=== PATIENT | female | born 1995 | race Hispanic/Latino ===

== ENCOUNTER 2022-10-11 20:53 | Emergency (ER) | payer MEDICARE ==
[~2022-10-11] VITALS: Ht 144.8 cm; Wt 101.2 kg
[2022-10-11 21:19] VITALS: BP 112/70
[2022-10-11] MEDS ORDERED: KETOROLAC 30MG VIAL (30MG/ML) IM ONE (23:00)
[2022-10-11] MEDS ORDERED: ACETAMINOPHEN WITH CODEINE 1 TAB TAB PO ONE (23:00)
[2022-10-11] MEDS ORDERED: ACET-2079 PO (23:08)
[2022-10-11] MEDS ORDERED: IBUP-2070 PO (23:08)
== END 2022-10-11 23:31 | disposition home or self-care (01) ==
LOC: EDH 20:53
DX: K02.9 Dental caries, unspecified (principal); K08.89 Other specified disorders of teeth and supporting structures; Z98.890 Other specified postprocedural states
CPT/HCPCS: 96372; 99283; J1885

== ENCOUNTER 2022-11-25 18:32 | Emergency (ER) | payer MEDICARE ==
[~2022-11-25] VITALS: Ht 144.8 cm; Wt 100.7 kg
[~2022-11-25 18:32] MED LIST: ACET-2079 PO; IBUP-2070 PO
[2022-11-25 19:31] VITALS: BP 135/75
== END 2022-11-25 19:38 | disposition home or self-care (01) ==
LOC: EDH 18:32
DX: K08.89 Other specified disorders of teeth and supporting structures (principal); Z79.1 Long term (current) use of non-steroidal anti-inflammatories (NSAID)
CPT/HCPCS: 99281

== ENCOUNTER 2023-01-30 13:28 | Emergency (ER) | payer MEDICARE ==
[~2023-01-30] VITALS: Ht 144.8 cm; Wt 103.9 kg
[2023-01-30 14:18] VITALS: BP 112/76
[2023-01-30] MEDS ORDERED: AMOX500C2 PO (14:26)
== END 2023-01-30 14:46 | disposition home or self-care (01) ==
LOC: EDH 13:28
DX: K04.7 Periapical abscess without sinus (principal); E03.9 Hypothyroidism, unspecified